=== PATIENT | female | born 1985 | race Hispanic/Latino ===

== ENCOUNTER 2020-09-23 13:24 | Outpatient (CLI) | payer OTHER ==
[2020-09-24 08:55] LABS: SARS-CoV-2 PCR by NAA Not Detected (NotDetected)
== END 2020-09-23 13:25 | disposition home or self-care (01) ==
LOC: CSHLAB 13:24
PROVIDERS: ATTEND Emergency Medicine
DX: Z20.822 Contact with and (suspected) exposure to COVID-19 (principal)
CPT/HCPCS: U0003; U0005

== ENCOUNTER 2020-09-27 18:00 | Inpatient (IN) | payer OTHER ==
[2020-09-27] MEDS ORDERED: hydrALAZINE 20 MG/ML VIAL SLOW IVP PRN (21:17)
[2020-09-27] MEDS ORDERED: Dextrose 5% in Water 1,000 ML IV PRN (21:18)
[2020-09-27] MEDS ORDERED: Dextrose 50% Abboject 50 ML SYRINGE SLOW IVP PRN (21:18)
[2020-09-27] MEDS ORDERED: HumaLOG 300 UNITS/3 ML VIAL SC PRN (21:18)
== END 2020-09-28 01:29 | disposition home health service (06) | DRG 832 ==
LOC: CSHLD 19:17
PROVIDERS: ADMIT Emergency Medicine; ATTEND Emergency Medicine
DX: O24.419 Gestational diabetes mellitus in pregnancy, unspecified control (principal); O10.913 Unspecified pre-existing hypertension complicating pregnancy, third trimester; Z3A.38 38 weeks gestation of pregnancy; O40.3XX0 Polyhydramnios, third trimester, not applicable or unspecified; O99.213 Obesity complicating pregnancy, third trimester; E66.9 Obesity, unspecified; O99.343 Other mental disorders complicating pregnancy, third trimester; F32.9 Major depressive disorder, single episode, unspecified; Z20.822 Contact with and (suspected) exposure to COVID-19
CPT/HCPCS: U0003; U0005

== ENCOUNTER 2020-09-28 13:40 | Outpatient (CLI) | payer OTHER ==
[2020-09-29 07:48] LABS: SARS-CoV-2 PCR by NAA Not Detected (NotDetected)
== END 2020-09-28 13:41 | disposition home or self-care (01) ==
LOC: CSHLAB 13:40
PROVIDERS: ATTEND Emergency Medicine
DX: Z20.822 Contact with and (suspected) exposure to COVID-19 (principal)
CPT/HCPCS: U0003; U0005